=== PATIENT | female | born 1975 | race American Indian/Alaskan Native ===

== ENCOUNTER 2019-04-05 00:42 | Emergency (ER) | payer OTHER ==
[2019-04-05 00:55] VITALS: BP 132/76
[2019-04-05] MEDS ORDERED: IBUPROFEN PO ONE (01:36)
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
== END 2019-04-05 03:00 | disposition home or self-care (01) ==
LOC: ED 00:42
DX: S39.012A Strain of muscle, fascia and tendon of lower back, initial encounter (principal); S29.019A Strain of muscle and tendon of unspecified wall of thorax, initial encounter; F31.9 Bipolar disorder, unspecified; F20.9 Schizophrenia, unspecified; F17.200 Nicotine dependence, unspecified, uncomplicated; V49.59XA Passenger injured in collision with other motor vehicles in traffic accident, initial encounter; Y93.89 Activity, other specified; Y92.410 Unspecified street and highway as the place of occurrence of the external cause; Y99.8 Other external cause status
CPT/HCPCS: 72072; 72100